=== PATIENT | female | born 1950 | race Caucasian/White ===

== ENCOUNTER 2018-11-30 10:02 | Emergency (ER) | payer MEDICARE ==
[2018-11-30 10:15] VITALS: RESP 18
[2018-11-30] MEDS ORDERED: SODIUM CHLORIDE 0.9% 1,000 ML IV STA (10:41)
--- NOTE | 2018-11-30 10:48 | ED ---
General Adult HPI - General Chief complaint: Upper Respiratory Infection Stated complaint: sweats/rib pain/weakness Time Seen by Provider: 11/30/18 10:23 Source: patient Mode of arrival: wheelchair Limitations: no limitations - History of Present Illness Initial comments: Patient is 68-year-old female presents emergency Department with a chief complaint of fatigue. Patient reports that he started Saturday and was initiated by one episode of diaphoresis that promptly resolved. Patient reports ever since the incident she has felt fatigue and has been seated for prolonged periods of time. Patient reports a fever on Saturday and Saturday but has not reappeared since. Patient denies nausea, vomiting, diarrhea, headache, or vision, chest pain chest tightness or shortness of breath. Patient reports intermittent urinary retention but denies dysuria, discharge, hematuria, hematochezia or melena. Patient reports taking multiple [id number] s upplements but no prescribed medications. Patient denies recent unexplained weight loss, night sweats or chills. Patient is a smoker and daily drinker. - Related Data Home Medications Medication Instructions Recorded Confirmed Aspirin [Henry Aspirin EC] 81 mg PO DAILY 11/30/18 11/30/18 Bacillus Coagulans/Inulin 1 cap PO DAILY 11/30/18 11/30/18 [Probiotic with Prebiotic Cap] Biotin 5,000 mcg PO DAILY 11/30/18 11/30/18 Calcium Polycarbophil [Fibercon] 625 mg PO DAILY 11/30/18 11/30/18 Cholecalciferol (Vitamin D3) 2,000 unit PO DAILY 11/30/18 11/30/18 [Vitamin D3] Cyanocobalamin (Vitamin B-12) 1,000 mcg PO DAILY 11/30/18 11/30/18 [Vitamin B-12] Folic Acid 0.8 mg PO DAILY 11/30/18 11/30/18 Ibuprofen [Motrin Ib] 400 mg PO Q8H 11/30/18 11/30/18 Vit K 2 100mcg 100 mcg PO DAILY 11/30/18 11/30/18 Vitamin E Acetate [Vitamin E] 200 unit PO DAILY 11/30/18 11/30/18 Previous Rx's Medication Instructions Recorded Amoxicillin/Potassium Clav 1 tab PO Q12HR #20 tab 11/30/18 [Augmentin 875-125 Tablet] Doxycycline Monohydrate [Monodox] 100 mg PO Q12HR #20 cap 11/30/18 Allergies Allergy/AdvReac Type Severity Reaction Status Date / Time shellfish derived [Shellfish] Allergy Swelling Verified 11/30/18 10:33 Review of Systems ROS Statement: Those systems with pertinent positive or pertinent negative responses have been documented in the HPI. ROS Other: All systems not noted in ROS Statement are negative. Past Medical History Past Medical History: No Reported History History of Any Multi-Drug Resistant Organisms: None Reported Past Surgical History: Section, Tonsillectomy Past Psychological History: No Psychological Hx Reported Smoking Status: Current every day smoker Past Alcohol Use History: Daily Past Drug Use History: None Reported General Exam Limitations: no limitations General appearance: alert, in no apparent distress Head exam: Present: atraumatic, normocephalic, normal inspection Eye exam: Present: normal appearance, PERRL, EOMI Pupils: Present: normal accommodation ENT exam: Present: normal exam, mucous membranes moist Neck exam: Present: normal inspection Respiratory exam: Present: normal lung sounds bilaterally Cardiovascular Exam: Present: regular rate, normal rhythm, normal heart sounds GI/Abdominal exam: Present: soft, normal bowel sounds. Absent: distended, tenderness, guarding, rebound Extremities exam: Present: normal inspection, full ROM Back exam: Present: normal inspection, full ROM Neurological exam: Present: alert, oriented X3 Psychiatric exam: Present: normal affect, normal mood Skin exam: Present: warm, intact, normal color Course Vital Signs 11/30/18 11/30/18 11/30/18 10:12 12:12 13:23 Temperature 98.7 F 98.9 F Pulse Rate 91 74 75 Respiratory 18 18 18 Rate Blood Pressure 143/95 143/96 182/98 O2 Sat by Pulse 97 99 98 Oximetry Medical Decision Making - Medical Decision Making Patient is 68-year-old feel presents emergency department for fatigue. Labs indicate elevated hemoglobin and liver function tests. I suspect the elevated liver function test are due to heart daily drinking habits. Chest x-ray is indicated of lobar consolidation suggesting a possible pneumonia. Patient will be placed on doxycycline and Augmentin for 10 days. Patient advised to establish a relationship with a primary care provider in order to further assess her abnormal labs. Patient advised to take prescribed medication as directed. Patient advised to limit drinking and smoking. I counseled the patient for smoking cessation for greater than 3 minutes. Case discussed with who is in agreement with the treatment plan. - Lab Data Result diagrams: 11/30/18 10:48 11/30/18 10:48 Lab Results 11/30/18 11/30/18 11/30/18 Range/Units 10:48 10:48 10:48 WBC 9.4 (3.8-10.6) k/uL RBC 5.48 H (3.80-5.40) m/uL Hgb 17.0 H (11.4-16.0) gm/dL Hct 51.8 H (34.0-46.0) % MCV 94.5 (80.0-100.0) fL MCH 31.1 (25.0-35.0) pg MCHC 32.9 (31.0-37.0) g/dL RDW 13.5 (11.5-15.5) % Plt Count 211 (150-450) k/uL Sodium 137 (137-145) mmol/L Potassium 3.8 (3.5-5.1) mmol/L Chloride 100 (98-107) mmol/L Carbon Dioxide 21 L (22-30) mmol/L Anion Gap 16 mmol/L BUN 28 H (7-17) mg/dL Creatinine 1.01 (0.52-1.04) mg/dL Est GFR (CKD-EPI)AfAm 67 (>60 ml/min/1.73 sqM) Est GFR (CKD-EPI)NonAf 58 (>60 ml/min/1.73 sqM) Glucose 126 H (74-99) mg/dL Calcium 9.6 (8.4-10.2) mg/dL Total Bilirubin 0.5 (0.2-1.3) mg/dL AST 81 H (14-36) U/L ALT 63 H (9-52) U/L Alkaline Phosphatase 142 H (38-126) U/L Total Protein 7.7 (6.3-8.2) g/dL Albumin 4.4 (3.5-5.0) g/dL Urine Color Yellow Urine Appearance Cloudy H (Clear) Urine pH 6.0 (5.0-8.0) Ur Specific Hanna 1.017 (1.001-1.035) Urine Protein 1+ H (Negative) Urine Glucose (UA) Negative (Negative) Urine Ketones Negative (Negative) Urine Blood Small H (Negative) Urine Nitrite Negative (Negative) Urine Bilirubin Negative (Negative) Urine Urobilinogen 2.0 (<2.0) mg/dL Ur Leukocyte Esterase Small H (Negative) Urine RBC 2 (0-5) /hpf Urine WBC 10 H (0-5) /hpf Ur Squamous Epith Cells 16 H (0-4) /hpf Urine Bacteria Occasional H (None) /hpf Cellular Casts 4 (0) /lpf Hyaline Casts 1 (0-2) /lpf Urine Mucus Rare H (None) /hpf Heterophile Antibody (Negative) 11/30/18 Range/Units 10:48 WBC (3.8-10.6) k/uL RBC (3.80-5.40) m/uL Hgb (11.4-16.0) gm/dL Hct (34.0-46.0) % MCV (80.0-100.0) fL MCH (25.0-35.0) pg MCHC (31.0-37.0) g/dL RDW (11.5-15.5) % Plt Count (150-450) k/uL Sodium (137-145) mmol/L Potassium (3.5-5.1) mmol/L Chloride (98-107) mmol/L Carbon Dioxide (22-30) mmol/L Anion Gap mmol/L BUN (7-17) mg/dL Creatinine (0.52-1.04) mg/dL Est GFR (CKD-EPI)AfAm (>60 ml/min/1.73 sqM) Est GFR (CKD-EPI)NonAf (>60 ml/min/1.73 sqM) Glucose (74-99) mg/dL Calcium (8.4-10.2) mg/dL Total Bilirubin (0.2-1.3) mg/dL AST (14-36) U/L ALT (9-52) U/L Alkaline Phosphatase (38-126) U/L Total Protein (6.3-8.2) g/dL Albumin (3.5-5.0) g/dL Urine Color Urine Appearance (Clear) Urine pH (5.0-8.0) Ur Specific Hanna (1.001-1.035) Urine Protein (Negative) Urine Glucose (UA) (Negative) Urine Ketones (Negative) Urine Blood (Negative) Urine Nitrite (Negative) Urine Bilirubin (Negative) Urine Urobilinogen (<2.0) mg/dL Ur Leukocyte Esterase (Negative) Urine RBC (0-5) /hpf Urine WBC (0-5) /hpf Ur Squamous Epith Cells (0-4) /hpf Urine Bacteria (None) /hpf Cellular Casts (0) /lpf Hyaline Casts (0-2) /lpf Urine Mucus (None) /hpf Heterophile Antibody Negative (Negative) Disposition Clinical Impression: Pneumonia Disposition: HOME SELF-CARE Condition: Stable Instructions (If sedation given, give patient instructions): Viral Pneumonia (DC), Upper Respiratory Infection (ED) Additional Instructions: Please take prescribed medication as directed. Please establish a relationship with primary care provider. Please refrain from drinking and smoking. Please return to emergency department if symptoms worsen. Prescriptions: Amoxicillin/Potassium Clav [Augmentin 875-125 Tablet] 1 tab PO Q12HR #20 tab Doxycycline Monohydrate [Monodox] 100 mg PO Q12HR #20 cap Is patient prescribed a controlled substance at d/c from ED?: No Referrals: None,Stated [Primary Care Provider] - 1-2 days Joselito Hinkle MD [REFERRING] - 1-2 days Time of Disposition: 13:04
[2018-11-30 11:06] LABS: HCT 51.8 % (34.0-46.0); MCH 31.1 pg (25.0-35.0); MCHC 32.9 g/dL (31.0-37.0); MCV 94.5 fL (80.0-100.0); Mean Platelet Volume 9.3; Platelet Count 211 k/uL (150-450); RBC 5.48 m/uL (3.80-5.40); RDW 13.5 % (11.5-15.5); WBC 9.4 k/uL (3.8-10.6)
[2018-11-30 11:14] LABS: Appearance,Urine Cloudy (Clear); Bacteria,Urine Occasional /hpf; Bilirubin,Urine Negative (Negative); Blood,Urine Small (Negative); Cellular Casts,Urine 4 /lpf (0); Color,Urine Yellow; Glucose,Urine (UA) Negative (Negative); Hyaline Casts,Urine 1 /lpf (0-2); Ketones,Urine Negative (Negative); Leukocyte Esterase,Urine Small (Negative); Mucus,Urine Rare /hpf; Nitrite,Urine Negative (Negative); Protein,Urine 1+ (Negative); RBC,Urine 2 /hpf (0-5); Specific Gravity,Urine 1.017 (1.001-1.035); Squamous Epithelial Cell,Urine 16 /hpf (0-4); WBC,Urine 10 /hpf (0-5)
[2018-11-30 11:18] LABS: Albumin 4.4 g/dL (3.5-5.0); Calcium 9.6 mg/dL (8.4-10.2); Potassium 3.8 mmol/L (3.5-5.1); Total Bilirubin 0.5 mg/dL (0.2-1.3); Total Protein 7.7 g/dL (6.3-8.2)
--- NOTE | 2018-11-30 11:35 | XR ---
EXAMINATION TYPE: XR chest 2V DATE OF EXAM: 11/30/2018 HISTORY: Cough/pain. REFERENCE: NONE. FINDINGS: There is a left perihilar infiltrate. The right lung is clear. Pleural space are clear. The heart is not enlarged. IMPRESSION: PROBABLE LEFT PERIHILAR PNEUMONIA. FOLLOW-UP TO RESOLUTION IS SUGGESTED.
[2018-11-30] MEDS ORDERED: AMOXIC-POT CLAV 875-125MG 1 EACH TAB PO STA (12:30)
[2018-11-30] MEDS ORDERED: DOXYCYCLINE 100 MG CAP PO STA (12:30)
[2018-11-30 13:24] VITALS: BP 182/98; PULSE 75; TEMP 98.9
== END 2018-11-30 13:24 | disposition home or self-care (01) ==
LOC: EC 10:02
DX: J18.9 Pneumonia, unspecified organism (principal); F17.200 Nicotine dependence, unspecified, uncomplicated; Z71.6 Tobacco abuse counseling; Z79.82 Long term (current) use of aspirin; Z79.899 Other long term (current) drug therapy; Z79.1 Long term (current) use of non-steroidal anti-inflammatories (NSAID); Z91.013 Allergy to seafood
CPT/HCPCS: 36415; 71046; 80053; 81001; 85027; 86308; 96360; 96361; 99285; 99406

== ENCOUNTER 2018-12-10 12:27 | Emergency (ER) | payer MEDICARE ==
[2018-12-10] MEDS ORDERED: SODIUM CHLORIDE 0.9% 1,000 ML IV STA (12:56)
--- NOTE | 2018-12-10 13:09 | ED ---
General Adult HPI - General Chief complaint: Recheck/Abnormal Lab/Rx Stated complaint: Weakness, Side Pain, pneumonia Time Seen by Provider: 12/10/18 12:39 Source: patient, RN notes reviewed Mode of arrival: ambulatory Limitations: no limitations - History of Present Illness Initial comments: 68-year-old female presents emergency department to complaint of generalized fatigue. Patient was seen here 9 days ago was placed on antibiotics for pneumonia. Patient lab work and x-ray. Patient states that she has 1 pill left but states that she still does feels fatigued. Patient complains of some discomfort underneath her left breast. She states it's not pleuritic in nature states it has been constant the area of pneumonia that she was told that she had. Patient denies any current fevers or chills she denies any significant past medical history though she does admit she is not currently primary care physician a regular basis. She did follow-up after her ER visit with Dr. Martinez. Patient denies night sweats, headache, dizziness, shortness of breath, nausea vomiting diarrhea constipation. - Related Data Home Medications Medication Instructions Recorded Confirmed Aspirin [[place] Aspirin EC] 81 mg PO DAILY 11/30/18 12/10/18 Cyanocobalamin (Vitamin B-12) 1,000 mcg PO DAILY 11/30/18 12/10/18 [Vitamin B-12] Folic Acid 0.8 mg PO DAILY 11/30/18 12/10/18 Vitamin E Acetate [Vitamin E] 200 unit PO DAILY 11/30/18 12/10/18 Ascorbic Acid [Vitamin C] 1,000 mg PO DAILY 12/10/18 12/10/18 Previous Rx's Medication Instructions Recorded Azithromycin [Zithromax Z-pack] 0 mg PO DIRECTED #1 pack 12/10/18 Fluconazole [Diflucan] 150 mg PO ONCE #3 tab 12/10/18 Allergies Allergy/AdvReac Type Severity Reaction Status Date / Time shellfish derived [Shellfish] Allergy Swelling Verified 12/10/18 15:21 Review of Systems ROS Statement: Those systems with pertinent positive or pertinent negative responses have been documented in the HPI. ROS Other: All systems not noted in ROS Statement are negative. Past Medical History Past Medical History: No Reported History History of Any Multi-Drug Resistant Organisms: None Reported Past Surgical History: Section, Tonsillectomy Past Psychological History: No Psychological Hx Reported Smoking Status: Current every day smoker Past Alcohol Use History: Daily Past Drug Use History: None Reported General Exam Limitations: no limitations General appearance: alert, in no apparent distress Head exam: Present: atraumatic, normocephalic, normal inspection Eye exam: Present: normal appearance, PERRL, EOMI. Absent: scleral icterus, conjunctival injection, periorbital swelling ENT exam: Present: normal exam, normal oropharynx, mucous membranes moist Neck exam: Present: normal inspection, full ROM. Absent: tenderness, meningismus, lymphadenopathy Respiratory exam: Present: normal lung sounds bilaterally. Absent: respiratory distress, wheezes, rales, rhonchi, stridor, chest wall tenderness Cardiovascular Exam: Present: regular rate, normal rhythm, normal heart sounds. Absent: systolic murmur, diastolic murmur, rubs, gallop, clicks GI/Abdominal exam: Present: soft, normal bowel sounds. Absent: distended, tenderness, guarding, rebound, rigid Neurological exam: Present: alert, oriented X3, CN II-XII intact Skin exam: Present: warm, dry, intact, normal color. Absent: rash Course Vital Signs 12/10/18 12/10/18 12:29 15:26 Temperature 98.1 F 98.0 F Pulse Rate 83 68 Respiratory 20 18 Rate Blood Pressure 157/75 174/94 O2 Sat by Pulse 100 97 Oximetry EKG Findings - EKG Comments: EKG Findings:: EKG performed at 13:09 sinus rhythm with nonspecific T-wave inversions in lead 3, rate of 66 SD 170 QS 92 QT/QTC 390/ 415 Medical Decision Making - Medical Decision Making 68-year-old female presented from for fatigue, mild pneumonia. Patient did have d-dimer which was elevated, CT was nondiagnostic VQ scan was ordered which shows no evidence of PE. Patient's pain areas related to her pneumonia, lab work is unremarkable otherwise. Patient will be discharged with 3 more days of antibiotics with close follow-up with PCP. - Lab Data Result diagrams: 12/10/18 12:50 12/10/18 12:50 Lab Results 12/10/18 12/10/18 12/10/18 Range/Units 12:50 12:50 12:50 WBC 10.1 (3.8-10.6) k/uL RBC 4.83 (3.80-5.40) m/uL Hgb 14.9 (11.4-16.0) gm/dL Hct 46.2 H (34.0-46.0) % MCV 95.8 (80.0-100.0) fL MCH 30.8 (25.0-35.0) pg MCHC 32.2 (31.0-37.0) g/dL RDW 14.3 (11.5-15.5) % Plt Count 279 (150-450) k/uL Neutrophils % 71 % Lymphocytes % 23 % Monocytes % 3 % Eosinophils % 1 % Basophils % 1 % Neutrophils # 7.2 (1.3-7.7) k/uL Lymphocytes # 2.4 (1.0-4.8) k/uL Monocytes # 0.3 (0-1.0) k/uL Eosinophils # 0.1 (0-0.7) k/uL Basophils # 0.1 (0-0.2) k/uL PT 9.7 (9.0-12.0) sec INR 0.9 (<1.2) APTT 25.1 (22.0-30.0) sec D-Dimer 1.39 H (<0.60) mg/L FEU Sodium 141 (137-145) mmol/L Potassium 4.1 (3.5-5.1) mmol/L Chloride 108 H (98-107) mmol/L Carbon Dioxide 23 (22-30) mmol/L Anion Gap 10 mmol/L BUN 13 (7-17) mg/dL Creatinine 0.59 (0.52-1.04) mg/dL Est GFR (CKD-EPI)AfAm >90 (>60 ml/min/1.73 sqM) Est GFR (CKD-EPI)NonAf >90 (>60 ml/min/1.73 sqM) Glucose 107 H (74-99) mg/dL Plasma Lactic Acid Gianluca (0.7-2.0) mmol/L Calcium 9.7 (8.4-10.2) mg/dL Magnesium 1.9 (1.6-2.3) mg/dL Total Bilirubin 0.5 (0.2-1.3) mg/dL AST 26 (14-36) U/L ALT 27 (9-52) U/L Alkaline Phosphatase 100 (38-126) U/L Troponin I (0.000-0.034) ng/mL Total Protein 7.0 (6.3-8.2) g/dL Albumin 4.0 (3.5-5.0) g/dL TSH 0.050 L (0.465-4.680) mIU/L Free T4 1.33 (0.78-2.19) ng/dL Urine Color Urine Appearance (Clear) Urine pH (5.0-8.0) Ur Specific Rover (1.001-1.035) Urine Protein (Negative) Urine Glucose (UA) (Negative) Urine Ketones (Negative) Urine Blood (Negative) Urine Nitrite (Negative) Urine Bilirubin (Negative) Urine Urobilinogen (<2.0) mg/dL Ur Leukocyte Esterase (Negative) Urine RBC (0-5) /hpf Urine WBC (0-5) /hpf Ur Squamous Epith Cells (0-4) /hpf 12/10/18 12/10/18 12/10/18 Range/Units 12:50 12:50 15:25 WBC (3.8-10.6) k/uL RBC (3.80-5.40) m/uL Hgb (11.4-16.0) gm/dL Hct (34.0-46.0) % MCV (80.0-100.0) fL MCH (25.0-35.0) pg MCHC (31.0-37.0) g/dL RDW (11.5-15.5) % Plt Count (150-450) k/uL Neutrophils % % Lymphocytes % % Monocytes % % Eosinophils % % Basophils % % Neutrophils # (1.3-7.7) k/uL Lymphocytes # (1.0-4.8) k/uL Monocytes # (0-1.0) k/uL Eosinophils # (0-0.7) k/uL Basophils # (0-0.2) k/uL PT (9.0-12.0) sec INR (<1.2) APTT (22.0-30.0) sec D-Dimer (<0.60) mg/L FEU Sodium (137-145) mmol/L Potassium (3.5-5.1) mmol/L Chloride (98-107) mmol/L Carbon Dioxide (22-30) mmol/L Anion Gap mmol/L BUN (7-17) mg/dL Creatinine (0.52-1.04) mg/dL Est GFR (CKD-EPI)AfAm (>60 ml/min/1.73 sqM) Est GFR (CKD-EPI)NonAf (>60 ml/min/1.73 sqM) Glucose (74-99) mg/dL Plasma Lactic Acid Gianluca 1.1 (0.7-2.0) mmol/L Calcium (8.4-10.2) mg/dL Magnesium (1.6-2.3) mg/dL Total Bilirubin (0.2-1.3) mg/dL AST (14-36) U/L ALT (9-52) U/L Alkaline Phosphatase (38-126) U/L Troponin I <0.012 (0.000-0.034) ng/mL Total Protein (6.3-8.2) g/dL Albumin (3.5-5.0) g/dL TSH (0.465-4.680) mIU/L Free T4 (0.78-2.19) ng/dL Urine Color Light Yellow Urine Appearance Clear (Clear) Urine pH 5.0 (5.0-8.0) Ur Specific Rover 1.050 H (1.001-1.035) Urine Protein Negative (Negative) Urine Glucose (UA) Negative (Negative) Urine Ketones Trace H (Negative) Urine Blood Negative (Negative) Urine Nitrite Negative (Negative) Urine Bilirubin Negative (Negative) Urine Urobilinogen <2.0 (<2.0) mg/dL Ur Leukocyte Esterase Trace H (Negative) Urine RBC 2 (0-5) /hpf Urine WBC 2 (0-5) /hpf Ur Squamous Epith Cells 2 (0-4) /hpf Disposition Clinical Impression: Pneumonia, Pleuritic pain Disposition: HOME SELF-CARE Condition: Stable Instructions (If sedation given, give patient instructions): Pneumonia (ED) Additional Instructions: Please return to the Emergency Department if symptoms worsen or any other concerns. Prescriptions: Fluconazole [Diflucan] 150 mg PO ONCE #3 tab Azithromycin [Zithromax Z-pack] 0 mg PO DIRECTED #1 pack Is patient prescribed a controlled substance at d/c from ED?: No Referrals: None,Stated [Primary Care Provider] - 1-2 days Time of Disposition: 17:16
[2018-12-10 13:13] LABS: Basophils # (A) 0.1 k/uL (0-0.2); Basophils % (A) 1 %; Eosinophils # (A) 0.1 k/uL (0-0.7); Eosinophils % (A) 1 %; HCT 46.2 % (34.0-46.0); HGB 14.9 gm/dL (11.4-16.0); Lymphocytes # (A) 2.4 k/uL (1.0-4.8); Lymphocytes % (A) 23 %; MCH 30.8 pg (25.0-35.0); MCHC 32.2 g/dL (31.0-37.0); MCV 95.8 fL (80.0-100.0); Monocytes # (A) 0.3 k/uL (0-1.0); Monocytes % (A) 3 %; Neutrophils # (A) 7.2 k/uL (1.3-7.7); Neutrophils % (A) 71 %; Platelet Count 279 k/uL (150-450); RBC 4.83 m/uL (3.80-5.40); RDW 14.3 % (11.5-15.5); WBC 10.1 k/uL (3.8-10.6)
[2018-12-10 13:28] LABS: ALT 27 U/L (9-52); AST 26 U/L (14-36); African American GFR (CKD) >90 (>60 ml/min/1.73 sqM); Alkaline Phosphatase 100 U/L (38-126); Anion Gap 10 mmol/L; Blood Urea Nitrogen 13 mg/dL (7-17); Calcium 9.7 mg/dL (8.4-10.2); Carbon Dioxide 23 mmol/L (22-30); Chloride 108 mmol/L (98-107); Glucose 107 mg/dL (74-99); Magnesium 1.9 mg/dL (1.6-2.3); Potassium 4.1 mmol/L (3.5-5.1); Sodium 141 mmol/L (137-145); Total Bilirubin 0.5 mg/dL (0.2-1.3)
[2018-12-10 13:29] LABS: INR 0.9 (<1.2); Partial Thromboplastin Time 25.1 sec (22.0-30.0); Prothrombin Time 9.7 sec (9.0-12.0)
[2018-12-10 13:31] LABS: D-Dimer 1.39 mg/L FEU (<0.60)
--- NOTE | 2018-12-10 13:36 | XR ---
EXAMINATION TYPE: XR chest 2V DATE OF EXAM: 12/10/2018 COMPARISON: 11/30/2018 TECHNIQUE: PA and lateral views submitted. HISTORY: Weakness FINDINGS: There is improving left upper lobe consolidation suggestive of improving pneumonia. Underlying neopla sm not excluded. Heart is prominent. Hypertrophic and degenerative change of the spine. Arthropathy o f the shoulders. IMPRESSION: 1. Improving left upper lobe pneumonia
--- NOTE | 2018-12-10 14:43 | CT ---
EXAMINATION TYPE: CT chest angio for PE DATE OF EXAM: 12/10/2018 COMPARISON: NONE HISTORY: Left sided chest pains CT DLP: 380 mGycm. Automated Exposure Control for Dose Reduction was Utilized. CONTRAST: CTA scan of the thorax is performed with IV Contrast, patient injected with 100 mL of Isovue 370, pul monary embolism protocol. MIP Images are created on CT scanner and reviewed. FINDINGS: LUNGS: There is masslike consolidation with air bronchograms favoring pneumonia left upper lobe axial image 53. Correlate clinically. No pleural effusion or pneumothorax is seen. Some improvement from c hest x-ray November 30, 2018 noted. MEDIASTINUM: There is suboptimal bolus with most dense contrast in SVC and higher dense contrast note d in aorta versus adjacent pulmonary arteries. Exam is essentially nondiagnostic for pulmonary emboli sm. There are no greater than 1 cm hilar or mediastinal lymph nodes. No significant pericardial eff usion is seen. Heart size is upper limits of normal. OTHER: [id number] multilevel anterior and lateral spurring is present. IMPRESSION: Nondiagnostic for pulmonary embolism. Suspect improving left upper lobe pneumonia, correl ate clinically.
[2018-12-10 14:54] LABS: T4, Free (Free Thyroxine) 1.33 ng/dL (0.78-2.19)
[2018-12-10 15:29] VITALS: RESP 18; TEMP 98
[2018-12-10 15:43] LABS: Appearance,Urine Clear (Clear); Bilirubin,Urine Negative (Negative); Blood,Urine Negative (Negative); Color,Urine Light Yellow; Glucose,Urine (UA) Negative (Negative); Ketones,Urine Trace (Negative); Leukocyte Esterase,Urine Trace (Negative); Nitrite,Urine Negative (Negative); Protein,Urine Negative (Negative); RBC,Urine 2 /hpf (0-5); Squamous Epithelial Cell,Urine 2 /hpf (0-4); Urobilinogen,Urine <2.0 mg/dL (<2.0)
--- NOTE | 2018-12-10 17:06 | NM ---
EXAMINATION TYPE: NM pul vent and perfuse DATE OF EXAM: 12/10/2018 COMPARISON: NONE HISTORY: Elevated d-dimer TECHNIQUE: Utilizing inhalation of 39.5 mCi Tc 99m DTPA aerosol and intravenous injection of 4.6 mCi of Tc 99m MAA, ventilation and perfusion images are acquired post injection in multiple projections. FINDINGS: There are peripheral ventilation defects in both lungs consistent with airway disease. There is a sma ll wedge-shaped perfusion defect in the anterior segment left upper lobe that corresponds to a infilt rate on the chest x-ray today. The remainder of exam is unremarkable. IMPRESSION: There is evidence of bilateral airway disease. There is single segmental size matching perfusion defe ct in the anterior segment left upper lobe in an area of corresponding radiographic abnormality. Ther e is low to intermediate probability of pulmonary embolism.
[2018-12-10 17:21] VITALS: BP 170/80; PULSE 80
== END 2018-12-10 17:18 | disposition home or self-care (01) ==
LOC: EC 12:27
DX: J18.1 Lobar pneumonia, unspecified organism (principal); F17.200 Nicotine dependence, unspecified, uncomplicated; Z79.82 Long term (current) use of aspirin; Z91.013 Allergy to seafood
CPT/HCPCS: 36415; 93005; 85379; 84439; 80053; 84443; 83605; 83735; 84484; 85025; 85610; 85730; 81001; 71046; 71275; 78582; 99285; 96360; A9540; A9567; Q9967